=== PATIENT | female | born 1955 | race Caucasian/White ===

== ENCOUNTER 2020-12-16 14:26 | Outpatient (CLI) | payer BC | END 2020-12-16 14:27 | disposition home or self-care (01) | LOC: CSHMRI 14:26 | PROVIDERS: ATTEND Anesthesiology | DX: M54.12 Radiculopathy, cervical region (principal); Z98.1 Arthrodesis status; M47.812 Spondylosis without myelopathy or radiculopathy, cervical region; M48.02 Spinal stenosis, cervical region | CPT/HCPCS: 72141 ==

== ENCOUNTER 2022-07-15 15:14 | Outpatient (CLI) | payer BC, MEDICARE | END 2022-07-15 15:15 | disposition home or self-care (01) | LOC: CSHSPEC 15:14 | PROVIDERS: ATTEND Clinical Nurse Specialist Medical-Surgical | DX: M51.16 Intervertebral disc disorders with radiculopathy, lumbar region (principal); Z95.818 Presence of other cardiac implants and grafts; M51.36 Other intervertebral disc degeneration, lumbar region; M51.26 Other intervertebral disc displacement, lumbar region | CPT/HCPCS: 72148 ==

== ENCOUNTER 2024-07-26 11:41 | Outpatient (CLI) | payer BC | END 2024-07-26 11:42 | disposition home or self-care (01) | LOC: CSHCT 11:41 | PROVIDERS: ATTEND Surgery | DX: R10.9 Unspecified abdominal pain (principal) | CPT/HCPCS: 74177; 82565 ==